=== PATIENT | male | born 1955 | race African-American/Black ===

== ENCOUNTER 2023-02-02 10:57 | Outpatient (CLI) | payer OTHER, MEDICAID | END 2023-02-02 10:58 | disposition home or self-care (01) | LOC: ULT 10:57 | PROVIDERS: ATTEND Internal Medicine Gastroenterology | DX: B18.2 Chronic viral hepatitis C (principal); N28.1 Cyst of kidney, acquired; R16.0 Hepatomegaly, not elsewhere classified | CPT/HCPCS: 76700 ==